=== PATIENT | male | born 1975 | race Caucasian/White ===

== ENCOUNTER 2023-04-13 08:00 | Outpatient (CLI) | payer OTHER ==
--- NOTE | 2023-04-13 18:48 | XRAY Report ---
PROCEDURE: Hand 3+V LT INDICATIONS: CRUSHING INJURY TO LEFT 5TH DIGIT TECHNIQUE: 3 view(s) of the hand(s) acquired. COMPARISON: None FINDINGS: Bones: No fractures or dislocations. No suspicious bony lesions. Soft tissues: No suspicious soft tissue calcifications. Distal fifth finger soft tissue laceration IMPRESSION: Fifth finger distal soft tissue laceration without fracture or foreign body Reviewed by: Erwin Goodson MD on 04/13/2023 5:47 PM AKST Approved by: Erwin Goodson MD on 04/13/2023 5:47 PM AKST Station ID: [id number]
== END 2023-04-13 23:59 | disposition home or self-care (01) ==
LOC: DI.S 08:00
PROVIDERS: ATTEND Registered Nurse
DX: S67.197A Crushing injury of left little finger, initial encounter (principal); S61.217A Laceration without foreign body of left little finger without damage to nail, initial encounter